=== PATIENT | male | born 1980 | race Asian ===

== ENCOUNTER 2017-06-01 06:44 | Emergency (ER) | payer OTHER ==
[~2017-06-01] VITALS: Ht 185.4 cm; Wt 99.8 kg
[2017-06-01 07:26] LABS: microscopic required? YES; urine erythrocyte 3+ (NEGATIVE)
[2017-06-01 07:27] LABS: BASOPHIL % 0.5 % (0-2); PLATELET COUNT 186 x10^3mcL (130-400); RED CELL DISTRIBUTION WIDTH 12.9 % (11.5-14.5)
[2017-06-01 07:34] LABS: CALCIUM 8.6 mg/dL (8.5-10.1); CARBON DIOXIDE 28.4 mmol/L (21-32); CHLORIDE SERUM 105 mmol/L (98-107); CREATININE SERUM 1.2 mg/dL (0.7-1.3); GFR1 > 60 mL/min; GLUCOSE SERUM 108 mg/dL (74-106); SODIUM SERUM 141 mmol/L (136-145)
[2017-06-01 07:39] LABS: ALBUMIN 3.9 g/dL (3.4-5.0); ALKALINE PHOSPHATASE 106 U/L (46-116); ALT/SGPT 48 U/L (16-63); AMYLASE 37 U/L (25-115); AST/SGOT 19 U/L (15-37); BILIRUBIN TOTAL 0.4 mg/dL (0.20-1.00); LIPASE 171 IU/L (73-393); TOTAL PROTEIN, SERUM 7.2 g/dL (6.4-8.2)
[2017-06-01 09:42] VITALS: BP 125/63
== END 2017-06-01 09:42 | disposition home or self-care (01) ==
LOC: ED 06:44
PROVIDERS: Emergency Medicine
DX: N20.0 Calculus of kidney (principal); F17.210 Nicotine dependence, cigarettes, uncomplicated; Z71.6 Tobacco abuse counseling
CPT/HCPCS: 99406; J1885; J7030

== ENCOUNTER 2018-11-30 14:25 | Emergency (ER) | payer BC ==
[~2018-11-30] VITALS: Ht 188 cm; Wt 103.4 kg
[2018-11-30 14:29] VITALS: Ht 188 cm; Wt 103.4 kg
[2018-11-30 18:13] VITALS: BP 121/80
== END 2018-11-30 18:13 | disposition home or self-care (01) ==
LOC: ED 14:25
DX: S93.501A Unspecified sprain of right great toe, initial encounter (principal); W20.8XXA Other cause of strike by thrown, projected or falling object, initial encounter; Y93.89 Activity, other specified; Y92.89 Other specified places as the place of occurrence of the external cause; Y99.8 Other external cause status
CPT/HCPCS: 90715